=== PATIENT | female | born 1965 | race Caucasian/White ===

== ENCOUNTER 2019-07-12 13:06 | Emergency (ER) | payer OTHER ==
[~2019-07-12] VITALS: Ht 170.2 cm; Wt 77.1 kg
[~2019-07-12 13:06] MED LIST: ACET120S PR; ACET325 PO; ALBU90OI INH; ALBU90OI61 INH; AZIT250 PO; BENZ100A PO; BGALA3.3 PO; CARI350 PO; CYCL10; CYCL10 PO; DIAZ5 PO; DICL100ER PO; GUAPHELA PO; HYDACE10B PO; HYDACE5 PO; HYDGUAL120 PO; IBUP200; IBUP800; IBUP800 PO; Monodox100 MG PO; NAPR500 PO; NAPR550 PO; OXYACE7.5T PO; PROACE100; PROCODE120 PO; Prednisone20 MG PO; Prilosec Otc20 MG PO; Robaxin500 MG PO; SOMINEX; SPACE CHAMBER1 EACH MC; SULTRIDS PO; Sudogest30 MG PO; TRAM50 PO; ZOLP5 PO
[2019-07-12] MEDS ORDERED: Voltaren100 GM TOP (14:42)
== END 2019-07-12 14:50 | disposition home or self-care (01) ==
LOC: ER 13:06
DX: M77.9 Enthesopathy, unspecified (principal); F17.200 Nicotine dependence, unspecified, uncomplicated

== ENCOUNTER 2021-04-28 17:44 | Emergency (ER) | payer OTHER ==
[~2021-04-28] VITALS: Ht 165.1 cm; Wt 81.7 kg
[~2021-04-28 17:44] MED LIST changes: +Voltaren100 GM TOP
[2021-04-28 18:37] LABS: BASOPHILS ABSOLUTE AUTO 0.02 K/mm3 (0.00-0.23); BASOPHILS PERCENT AUTO 1 % (0-2); EOSINOPHILS ABSOLUTE AUTO 0.01 K/mm3 (0.00-0.68); EOSINOPHILS PERCENT AUTO 0 % (0-6); Hematocrit 39.4 % (33.0-51.0); Hemoglobin 13.3 g/dL (11.5-16.0); IMMATURE GRAN ABSOLUTE AUTO 0.01 K/mm3 (0.00-0.10); IMMATURE GRAN PERCENT AUTO 0 % (0-1); LYMPHOCYTES ABSOLUTE AUTO 1.11 K/mm3 (0.84-5.20); LYMPHOCYTES PERCENT AUTO 41 % (21-46); MONOCYTES ABSOLUTE AUTO 0.31 K/mm3 (0.16-1.47); MONOCYTES PERCENT AUTO 11 % (4-13); Mean Corpuscular HGB Conc 33.8 g/dL (31.5-36.5); Mean Corpuscular Volume 89 fL (80-100); Mean Platelet Volume 9.4 fL (9.1-12.4); NEUTROPHILS ABSOLUTE AUTO 1.26 K/mm3 (1.96-9.15); NEUTROPHILS PERCENT AUTO 46 % (41-73); Platelet Count 220 K/mm3 (150-400); RDW Coefficient Variation 11.5 % (11.7-14.2); RDW Standard Deviation 37.3 fL (35.1-46.3); Red Blood Cell Count 4.43 M/mm3 (3.80-5.20); White Blood Cell Count 2.72 K/mm3 (4.00-11.30)
[2021-04-28 18:55] LABS: Alanine Aminotransfer (ALT/SGP 40 U/L (12-78); Albumin, Blood 3.2 g/dL (3.4-5.0); Albumin/Globulin Ratio 0.8 (0.8-1.8); Alk Phos 76 U/L (50-136); Anion Gap 5 mmol/L (6-16); Aspartate Aminotrans (AST/SGOT 30 U/L (12-37); Bilirubin, Total 0.4 mg/dL (0.1-1.0); Blood Urea Nitrogen 10 mg/dL (8-24); Bun/Creatinine Ratio 11.7 (12.0-20.0); CO2, Blood 28 mmol/L (21-32); Calcium, Blood 8.7 mg/dL (8.5-10.1); Chloride, Blood 104 mmol/L (98-108); Creatinine, Blood 0.86 mg/dL (0.40-1.00); Globulin, Blood 3.9 g/dL (2.2-4.0); Glomerular Filtration Rate >60 (60-); Glucose, Blood 93 mg/dL (70-99); Potassium, Blood 3.7 mmol/L (3.5-5.5); Sodium, Blood 137 mmol/L (136-145); Total Protein, Blood 7.1 g/dL (6.4-8.2)
[2021-04-28] MEDS ORDERED: CAPSAICIN60 G1 TOP (21:02)
[2021-04-28 21:21] LABS: Source, Urine Clean Catch
[2021-04-28 21:25] LABS: Bilirubin, Urine Neg (Neg); Blood, Urine Neg (Neg); Color, Urine Yellow (P-Yellow); Glucose Qualitative, Urine Neg (Neg); Ketones, Urine Neg (Neg); Leukocyte Esterase, Urine 1+ (Neg); Nitrite, Urine Neg (Neg); Protein, Urine 1+ (Neg); Specific Gravity, Urine 1.015 (1.003-1.022); Urobilinogen, Urine 1+ (Normal)
[2021-04-28 21:31] LABS: Appearance, Urine Hazy (Clear); Red Blood Cells, Urine 0-2 /hpf (0-2); Squamous Epithelial Cells Mod /hpf (Few)
[2021-04-28 21:32] LABS: Bacteria Many /hpf; Hyaline Casts 0-2 /lpf (0-2); Mucus Mod (0-Heavy)
== END 2021-04-28 21:38 | disposition home or self-care (01) ==
LOC: ER 17:44
PROVIDERS: Physician Assistant
DX: K43.9 Ventral hernia without obstruction or gangrene (principal); U07.1 COVID-19; F17.200 Nicotine dependence, unspecified, uncomplicated; Z88.7 Allergy status to serum and vaccine; Z88.8 Allergy status to other drugs, medicaments and biological substances
CPT/HCPCS: 36415; 76705; 76857; 80053; 81001; 83690; 85025; 87086; 99285-25; A9270

== ENCOUNTER 2022-03-22 13:03 | Emergency (ER) | payer OTHER ==
[~2022-03-22] VITALS: Ht 170.2 cm; Wt 77.1 kg
[~2022-03-22 13:03] MED LIST changes: +CAPSAICIN60 G1 TOP
== END 2022-03-22 14:43 | disposition left against medical advice (07) ==
LOC: ER 13:03
DX: M25.562 Pain in left knee (principal); Z53.21 Procedure and treatment not carried out due to patient leaving prior to being seen by health care provider
CPT/HCPCS: 73562-LT; 99281-25

== ENCOUNTER 2024-05-30 20:35 | Emergency (ER) | payer OTHER ==
[~2024-05-30] VITALS: Ht 170.2 cm; Wt 85.7 kg
[2024-05-30 21:11] LABS: BASOPHILS ABSOLUTE AUTO 0.09 K/mm3 (0.00-0.23); BASOPHILS PERCENT AUTO 1 % (0-2); EOSINOPHILS ABSOLUTE AUTO 0.26 K/mm3 (0.00-0.68); EOSINOPHILS PERCENT AUTO 4 % (0-6); Hematocrit 39.2 % (33.0-51.0); Hemoglobin 12.9 g/dL (11.5-16.0); IMMATURE GRAN ABSOLUTE AUTO 0.02 K/mm3 (0.00-0.10); IMMATURE GRAN PERCENT AUTO 0 % (0-1); LYMPHOCYTES ABSOLUTE AUTO 2.31 K/mm3 (0.84-5.20); LYMPHOCYTES PERCENT AUTO 35 % (21-46); MONOCYTES ABSOLUTE AUTO 0.67 K/mm3 (0.16-1.47); MONOCYTES PERCENT AUTO 10 % (4-13); Mean Corpuscular HGB 29.9 pg (26.0-34.0); Mean Corpuscular HGB Conc 32.9 g/dL (31.5-36.5); Mean Corpuscular Volume 91 fL (80-100); Mean Platelet Volume 9.1 fL (9.1-12.4); NEUTROPHILS ABSOLUTE AUTO 3.18 K/mm3 (1.96-9.15); NEUTROPHILS PERCENT AUTO 49 % (41-73); Platelet Count 294 K/mm3 (150-400); RDW Standard Deviation 40.1 fL (35.1-46.3); Red Blood Cell Count 4.31 M/mm3 (3.80-5.20); White Blood Cell Count 6.53 K/mm3 (4.00-11.30)
[2024-05-30 21:37] LABS: Albumin, Blood 3.5 g/dL (3.4-5.0); Bilirubin, Total 0.3 mg/dL (0.1-1.0); Bun/Creatinine Ratio 22.8 (12.0-20.0); Calcium, Blood 9.2 mg/dL (8.5-10.1); Creatinine, Blood 0.92 mg/dL (0.40-1.00); Globulin, Blood 3.4 g/dL (2.2-4.0); Potassium, Blood 3.8 mmol/L (3.5-5.5); Total Protein, Blood 6.9 g/dL (6.4-8.2)
[2024-05-30 23:12] LABS: Source, Urine Clean Catch
[2024-05-30 23:22] LABS: Appearance, Urine Hazy (Clear); Bilirubin, Urine Neg (Neg); Blood, Urine 1+ (Neg); Color, Urine Yellow (P-Yellow); Glucose Qualitative, Urine Neg (Neg); Ketones, Urine Neg (Neg); Leukocyte Esterase, Urine 3+ (Neg); Nitrite, Urine Neg (Neg); Protein, Urine 1+ (Neg); Specific Gravity, Urine 1.025 (1.003-1.022); Urobilinogen, Urine NORM (Normal)
[2024-05-30 23:39] LABS: Bacteria Many /hpf; Red Blood Cells, Urine 0-2 /hpf (0-2); Squamous Epithelial Cells Mod /hpf (Few); White Blood Cells, Urine 25-50 /hpf (0-5)
[2024-05-30] MEDS ORDERED: CEPH500 PO (23:59)
[2024-05-31 00:11] VITALS: BP 118/80
== END 2024-05-31 00:12 | disposition home or self-care (01) ==
LOC: ER 20:35
PROVIDERS: Student in an Organized Health Care Education/Training Program
DX: R10.33 Periumbilical pain (principal); N30.00 Acute cystitis without hematuria; Z88.7 Allergy status to serum and vaccine; Z88.1 Allergy status to other antibiotic agents; Z88.8 Allergy status to other drugs, medicaments and biological substances; F17.200 Nicotine dependence, unspecified, uncomplicated; Z98.890 Other specified postprocedural states
CPT/HCPCS: 74177; 76857; 80053; 81001; 85025; 87086; 99284-25; Q9967

== ENCOUNTER 2024-06-18 16:14 | Emergency (ER) | payer OTHER ==
[~2024-06-18] VITALS: Ht 170.2 cm; Wt 83.9 kg
[~2024-06-18 16:14] MED LIST changes: +CEPH500 PO
[2024-06-18 16:27] VITALS: BP 123/86
[2024-06-18] MEDS ORDERED: Ketorolac Tromethamine 30mg Vial IM ONE (17:35)
[2024-06-18] MEDS ORDERED: OxyCODONE 5 mg/Acetamin 325 mg TABLET PO ONE (17:35)
[2024-06-18] MEDS ORDERED: Percocet 5-3251 EACH PO (17:36)
[2024-06-18] MEDS ORDERED: CRUTCH2 XX (17:37)
== END 2024-06-18 18:15 | disposition home or self-care (01) ==
LOC: ER 16:14
DX: S82.145A Nondisplaced bicondylar fracture of left tibia, initial encounter for closed fracture (principal); S82.402A Unspecified fracture of shaft of left fibula, initial encounter for closed fracture; F17.200 Nicotine dependence, unspecified, uncomplicated; W11.XXXA Fall on and from ladder, initial encounter; Z88.7 Allergy status to serum and vaccine; Z88.8 Allergy status to other drugs, medicaments and biological substances
CPT/HCPCS: 73562-LT; 96372; 99283-25; A9270; J1885

== ENCOUNTER 2024-10-05 14:46 | Emergency (ER) | payer OTHER ==
[~2024-10-05] VITALS: Ht 170.2 cm; Wt 79.4 kg
[~2024-10-05 14:46] MED LIST changes: +CRUTCH2 XX; +Percocet 5-3251 EACH PO
[2024-10-05 15:15] VITALS: BP 155/84
== END 2024-10-05 17:24 | disposition home or self-care (01) ==
LOC: ER 14:46
DX: M25.562 Pain in left knee (principal); Z88.7 Allergy status to serum and vaccine; Z88.8 Allergy status to other drugs, medicaments and biological substances; F17.200 Nicotine dependence, unspecified, uncomplicated
CPT/HCPCS: 73562-LT; 93971; 99283-25

== ENCOUNTER 2025-03-21 12:10 | Inpatient (IN) | payer OTHER ==
[~2025-03-21] VITALS: Ht 170.2 cm; Wt 90.0 kg
[~2025-03-21 12:10] MED LIST changes: +Propofol 10mg/ml 20 ml Vial (Procedural) IV ONE
[2025-03-21 12:54] LABS: BASOPHILS ABSOLUTE AUTO 0.08 K/mm3 (0.00-0.23); BASOPHILS PERCENT AUTO 1 % (0-2); EOSINOPHILS ABSOLUTE AUTO 0.20 K/mm3 (0.00-0.68); EOSINOPHILS PERCENT AUTO 3 % (0-6); Hematocrit 40.6 % (33.0-51.0); Hemoglobin 13.8 g/dL (11.5-16.0); IMMATURE GRAN ABSOLUTE AUTO 0.02 K/mm3 (0.00-0.10); IMMATURE GRAN PERCENT AUTO 0 % (0-1); LYMPHOCYTES ABSOLUTE AUTO 1.58 K/mm3 (0.84-5.20); LYMPHOCYTES PERCENT AUTO 22 % (21-46); MONOCYTES ABSOLUTE AUTO 0.67 K/mm3 (0.16-1.47); MONOCYTES PERCENT AUTO 9 % (4-13); Mean Corpuscular HGB Conc 34.0 g/dL (31.5-36.5); Mean Corpuscular Volume 91 fL (80-100); NEUTROPHILS ABSOLUTE AUTO 4.76 K/mm3 (1.96-9.15); NEUTROPHILS PERCENT AUTO 65 % (41-73); NRBC ABSOLUTE 0.00 K/mm3 (0.00-0.02); NRBC Auto 0.0 /100 WBC (0.0-0.2); Platelet Count 283 K/mm3 (150-400); RDW Coefficient Variation 12.4 % (11.7-14.2); RDW Standard Deviation 40.9 fL (35.1-46.3)
[2025-03-21] MEDS ORDERED: Diltiazem HCl 5 MG / ML 5ML Vial IV ONE (13:10)
[2025-03-21 13:25] LABS: Alanine Aminotransfer (ALT/SGP 43.0 U/L (12-78); Albumin, Blood 3.4 g/dL (3.4-5.0); Albumin/Globulin Ratio 0.8 (0.8-1.8); Anion Gap 10.0 mmol/L (3-11); Aspartate Aminotrans (AST/SGOT 27.0 U/L (12-37); Bilirubin, Total 0.7 mg/dL (0.1-1.0); Blood Urea Nitrogen 17.0 mg/dL (8-24); CO2, Blood 23.0 mmol/L (21-32); Calcium, Blood 8.8 mg/dL (8.5-10.1); Chloride, Blood 109.0 mmol/L (98-108); Creatinine, Blood 0.85 mg/dL (0.40-1.00); Globulin, Blood 4.0 g/dL (2.2-4.0); Glucose, Blood 114.0 mg/dL (70-99); Potassium, Blood 3.9 mmol/L (3.5-5.5); Sodium, Blood 138.0 mmol/L (136-145); Total Protein, Blood 7.4 g/dL (6.4-8.2)
[2025-03-21] MEDS ORDERED: Furosemide 10 MG / ML 2ML Vial IV ONE (15:35)
[2025-03-21] MEDS ORDERED: Polyethylene Glycol 3350 17 gm PO PRN (16:35)
[2025-03-21 18:50] VITALS: BP 133/97
[2025-03-21] MEDS ORDERED: DIAZ5 PO (18:50)
[2025-03-21] MEDS ORDERED: IBUP400 PO (18:50)
--- NOTE | 2025-03-21 19:20 | NUR ---
ADMIT NOTE PT TO ROOM AT 1840; SBA TRANSFERED TO BED. PT ALERT, ORIENTED X4; ANXIOUS BUT COOPERATIVE WITH CARE. ORIENTED TO ROOM AND CALL LIGHT. REPORT GIVEN TO ONCOMING RN.
[2025-03-21 19:55] VITALS: BP 140/82
[2025-03-21 23:00] VITALS: BP 124/98
[2025-03-22 03:42] VITALS: BP 144/104
--- NOTE | 2025-03-22 04:35 | NUR ---
SHIFT SUMMARY THIS RN ASSUMED CARE OF PATIENT AT 1900. PT A&O X4. ANXIOUS AT TIMES. ABLE TO MAKE NEEDS KNOWN. PT WITH REPORTED LEG CRAMPS DURING THIS SHIFT. IMPROVEMENT WITH REPOSITIONING AND HEAT APPLICATION. AWAITING LAB RESULTS AT THIS TIME. PT ON A DILT GTT AT BEGINNING OF SHIFT. TITRATED PER PROTOCOL/EMAR. PLACED ON STANDBY AROUND 2300. PT REMAINS OFF THE GTT AT THIS TIME WITH HR 90-100'S. INCREASED HR WITH AMBULATION TO 120-130'S BUT QUICKLY RECOVERS. PT PLACED ON 2L VIA NC WHILE SLEEPING FOR NOTED DESATTING TO THE MID 80'S. DYSPNEA WITH EXERTION. BP STABLE. AFEBRILE. DENIES CHEST PAIN/PRESSURE AND SOB AT REST. MEDICATED PER EMAR FOR LEFT KNEE PAIN AND HEADACHE. PT REFUSED TYLENOL D/T REPORTED "HEARTBURN" WHEN SHE HAS TAKEN IT IN THE PAST. SBA TO BATHROOM. BED IN LOWEST POSITION AND CALL LIGHT WITHIN REACH. [facility]
[2025-03-22 04:37] LABS: Hematocrit 40.6 % (33.0-51.0); Hemoglobin 13.9 g/dL (11.5-16.0); Mean Corpuscular HGB Conc 34.2 g/dL (31.5-36.5); Mean Corpuscular Volume 90 fL (80-100); NRBC ABSOLUTE 0.00 K/mm3 (0.00-0.02); NRBC Auto 0.0 /100 WBC (0.0-0.2); Platelet Count 247 K/mm3 (150-400); RDW Coefficient Variation 12.2 % (11.7-14.2); RDW Standard Deviation 39.8 fL (35.1-46.3)
[2025-03-22 05:29] LABS: Albumin, Blood 3.3 g/dL (3.4-5.0); Anion Gap 10 mmol/L (3-11); Blood Urea Nitrogen 17 mg/dL (8-24); CO2, Blood 25 mmol/L (21-32); Calcium, Blood 8.5 mg/dL (8.5-10.1); Chloride, Blood 106 mmol/L (98-108); Creatinine, Blood 0.75 mg/dL (0.40-1.00); Glucose, Blood 140 mg/dL (70-99); Magnesium, Blood 2.0 mg/dL (1.6-2.4); Phosphorus, Blood 4.2 mg/dL (2.5-4.9); Potassium, Blood 3.7 mmol/L (3.5-5.5); Sodium, Blood 137 mmol/L (136-145); Thyroid Stimulating Hormone 1.950 uIU/mL (0.360-4.800)
[2025-03-22 07:43] VITALS: BP 162/110
[2025-03-22] MEDS ORDERED: NS 500 ML IV SCH ×2 (08:40→11:55)
[2025-03-22] MEDS ORDERED: Albuterol 2.5 MG/3 ML VIAL INH PRN (08:55)
[2025-03-22 12:22] VITALS: BP 140/92
[2025-03-22] MEDS ORDERED: Acetaminophen/Aspirin/Caffeine 250/250/65 MG PO PRN (13:10)
[2025-03-22 16:22] VITALS: BP 149/101
--- NOTE | 2025-03-22 16:53 | NUR ---
SHIFT SUMMARY: PT ALERT AND ORIENTED X4, ABLE TO FOLLOW COMMANDS AND MAKE NEEDS KNOWN. ANXIOUS AT TIMES. STRENGTH EQUAL BILATERALLY. AFEBRILE. SPO2 >96% ON ROOM AIR. LUNG SOUNDS CLEAR, RESPIRTIONS EVEN AND UNLABORED AT REST. HR REMAINS AFIB 120'S- CONTINUING TO REFUSE DILT GTT. PT WILLING TO TAKE PO METOPROLOL THIS AM, TOLERATED WELL. PT REMAINS HYPERTENSIVE- REFUSING BLOOD PRESSURE MEDICATIONS AT THIS TIME. ABD MILDLY DISTENDED, BOWEL SOUNDS +. PULSES STRONG AND EQUAL THROUGHOUT. IND TO AND FROM BATHROOM. NS GTT @50ML/HR. PT WITH 7/10 HEADACHE THROUGHOUT THE DAY, MEDICATED PER EMAR WITH MINIMAL RELIEF. CURRENTLY IN BED, WATCHING TELEVISION. BED IN LOW, CALL LIGHT IN REACH, WILL REPORT TO ONCOMING RN.
[2025-03-22 19:45] VITALS: BP 129/95
[2025-03-22 22:50] VITALS: BP 2/75
[2025-03-23 04:28] LABS: Hematocrit 42.6 % (33.0-51.0); Hemoglobin 14.7 g/dL (11.5-16.0); Mean Corpuscular HGB Conc 34.5 g/dL (31.5-36.5); Mean Corpuscular Volume 89 fL (80-100); NRBC ABSOLUTE 0.00 K/mm3 (0.00-0.02); NRBC Auto 0.0 /100 WBC (0.0-0.2); Platelet Count 302 K/mm3 (150-400); RDW Coefficient Variation 12.1 % (11.7-14.2); RDW Standard Deviation 39.5 fL (35.1-46.3)
[2025-03-23 04:34] VITALS: BP 143/99
--- NOTE | 2025-03-23 04:41 | NUR ---
SHIFT SUMMARY PT A&O X4. ABLE TO MAKE NEEDS KNOWN. ANXIOUS AT TIMES. PT AGREED TO BEING PLACED BACK ON DILT GTT WHEN THIS RN CAME ON SHIFT. HR NOTED TO BE 140'S AT THAT TIME. DILT GTT NOW ON STANDBY WITH AFIB 80-100'S. BP STABLE. ON RA WITH SPO2 >92% WHILE AWAKE. SLEEP OXIMETRY STUDY ONGOING AT THIS TIME. PT FINISHED 500ML NS INFUSION. UP TO BATHROOM INDEPENDENTLY. MEDICATED PER EMAR FOR HEADACHE WITH REPORTED IMPROVEMENT. PT REPOSITIONING SELF IN BED INDEPENDENTLY. BED IN LOWEST POSITION AND CALL LIGHT WITHIN REACH. THIS RN WILL REPORT TO ONCOMING DAYSHIFT RN.
[2025-03-23 04:59] LABS: Albumin, Blood 3.1 g/dL (3.4-5.0); Anion Gap 4 mmol/L (3-11); Blood Urea Nitrogen 15 mg/dL (8-24); CO2, Blood 31 mmol/L (21-32); Calcium, Blood 8.5 mg/dL (8.5-10.1); Chloride, Blood 106 mmol/L (98-108); Creatinine, Blood 0.86 mg/dL (0.40-1.00); Glucose, Blood 139 mg/dL (70-99); Magnesium, Blood 2.1 mg/dL (1.6-2.4); Phosphorus, Blood 4.2 mg/dL (2.5-4.9); Potassium, Blood 4.1 mmol/L (3.5-5.5); Sodium, Blood 137 mmol/L (136-145)
[2025-03-23 08:03] VITALS: BP 139/95
[2025-03-23 10:55] VITALS: BP 115/90
[2025-03-23 15:50] VITALS: BP 114/71
--- NOTE | 2025-03-23 17:03 | NUR ---
SHIFT SUMMARY: PT REMAINS ALERT AND ORIENTED X4, ABLE TO FOLLOW COMMANDS AND MAKE NEEDS KNOWN. ANXIOUS AT TIMES. BP STABLE. HR AFIB 80'S. AFEBRILE. SPO2 >96% ON ROOM AIR. PULSES STRONG AND EQUAL THROUGHOUT. ABD SOFT, NON TENDER, BOWEL SOUNDS +. DILT ON STANDBY. MEDICATED X1 FOR HEADACHE. PT IND TO AND FROM BATHROOM. DENIES PAIN. BED IN LOW, CALL LIGHT IN REACH, WILL REPORT TO ONCOMING RN.
[2025-03-23 20:15] VITALS: BP 127/79
[2025-03-24 00:05] VITALS: BP 137/94
[2025-03-24 04:12] LABS: Hematocrit 43.8 % (33.0-51.0); Hemoglobin 14.9 g/dL (11.5-16.0); Mean Corpuscular HGB Conc 34.0 g/dL (31.5-36.5); Mean Corpuscular Volume 89 fL (80-100); NRBC ABSOLUTE 0.00 K/mm3 (0.00-0.02); NRBC Auto 0.0 /100 WBC (0.0-0.2); Platelet Count 300 K/mm3 (150-400); RDW Coefficient Variation 12.1 % (11.7-14.2); RDW Standard Deviation 39.3 fL (35.1-46.3)
[2025-03-24 04:25] VITALS: BP 134/92
[2025-03-24 04:32] LABS: Albumin, Blood 3.1 g/dL (3.4-5.0); Anion Gap 7 mmol/L (3-11); Blood Urea Nitrogen 23 mg/dL (8-24); CO2, Blood 28 mmol/L (21-32); Calcium, Blood 9.0 mg/dL (8.5-10.1); Chloride, Blood 107 mmol/L (98-108); Creatinine, Blood 0.91 mg/dL (0.40-1.00); Glucose, Blood 118 mg/dL (70-99); Phosphorus, Blood 5.1 mg/dL (2.5-4.9); Potassium, Blood 3.8 mmol/L (3.5-5.5); Sodium, Blood 138 mmol/L (136-145)
--- NOTE | 2025-03-24 06:42 | NUR ---
SHIFT SUMMARY: PT IS A&OX4, ANXIOUS AT TIMES, BUT COOPERATIVE WITH CARE. VSS ON RA. AFIB 90'S AT REST, 140'S-150'S WITH ACTIVITY. DILT GTT REMAINS ON STANDBY. C/O PAIN TO HER LEFT KNEE AND A CASTREJON, MEDICATED PER EMAR. TOLERATING A REGULAR DIET, WITH FREQUENT SNACKING. INDEPENDENT TO BR. VOIDING ADEQUATE AMOUNTS OF CLEAR YELLOW URINE. NO BM THIS SHIFT. REPOSITIONS HERSELF IN BED. BED IN LOWEST POSITION, CALL LIGHT WITHIN REACH. CALLS APPROPRIATELY AND IS ABLE TO ADVOCATE NEEDS EFFECTIVELY.
[2025-03-24 07:49] VITALS: BP 131/96
[2025-03-24 11:20] VITALS: BP 121/79
--- NOTE | 2025-03-24 12:44 | NUR ---
MORNING SUMMARY THE PT IS A&OX4, ANXIOUS, AND HAS CONCRETE THINKING ON MEDICAL CARE. THE PT IS IND IN THE ROOM WITH LEFT KNEE BRACE AND CANE. PT IS ABLE OT MAKE HER NEEDS KNOWN. THE PT HAS VALIUM 5MG TIDP ORDERED AT HOME FOR ANXIETY AND KNEE PAIN. IT WAS RESTARTED TODAY BECAUSE OF THE PT'S INCREASED EMOTIONAL STATE. THE PT HAS BEEN ARROUSABLE BUT EXTREMELY SLEEPY AFTER THE RECIEVING THE MEDICATION. THIS RN CALL DR. HILLS AND LET HIM KNOW OF THE INCREASE IN SLEEPINESS AND THIS RN ASKED FOR A CHANGE IN THE MEDICATION. DR. HILLS STATED HE WILL ORDER 2.5MG VALIUM AT BEDTIME NEEDED AND REEVALUATE THE ANXIETY MEDICAITON TOMORROW. ALSO WHILE ON THE PHONE WITH DR. HILLS THIS RN LET HIM KNOW THAT THE PT WILL NOT BE ABLE TO AMBULATE THE UNIT TO ASSESS HR WITH ACITIVTY THIS MORNING BECAUSE OF THE SLEEPINESS. THIS RN DID INFORM DR. HILLS THAT THE PT'S HR WHILE ALSEEP IS AFIB 90'S-110'S. SOON SHE WAKE UP AND TALKS HER HR JUMPS TO 120'S. DR. HILLS DISCUSSED TAPERING UP ON METOPROLOL. THE PT'S BP REMAINS STABLE. SHE HAS BEEN ON RA AND DENIES ANY SOB. SP02 >93%. SEE NOTES FOR UPDATES.
[2025-03-24 15:10] VITALS: BP 126/97
--- NOTE | 2025-03-24 15:16 | NUR ---
THIS NURSE SPOKE TO DR. HILLS ABOUT PT'S HR TOUCHING TO 170'S WITH ACTIVITY AND WALKING. THE 1700 DOSE OF METOPROLOL 25MG XL WAS GIVEN NOW FOR AFIB RVR. THE PT HAS RECIEVED A TOTAL OF 75MG PO METOPROLOL THIS SHIFT THUS FAR. PLAN TO INCREASE DOSE 03/25 0900 UP TO 100MG. SEE NOTES FOR UPDATES.
--- NOTE | 2025-03-24 18:34 | NUR ---
PT IS REPORTING THAT THE METOPROLOL IS MAKING HER "FEEL QUEEZY". WANTING TO REST. THIS WAS DISCUSSED WITH [employer] OR [employer].
[2025-03-24 20:54] VITALS: BP 122/93
[2025-03-25] VITALS (7 sets, daily range): BP systolic 100–130; BP diastolic 61–85
[2025-03-25 04:38] LABS: Hematocrit 45.2 % (33.0-51.0); Hemoglobin 15.4 g/dL (11.5-16.0); Mean Corpuscular HGB Conc 34.1 g/dL (31.5-36.5); Mean Corpuscular Volume 87 fL (80-100); NRBC ABSOLUTE 0.00 K/mm3 (0.00-0.02); NRBC Auto 0.0 /100 WBC (0.0-0.2); Platelet Count 323 K/mm3 (150-400); RDW Coefficient Variation 12.0 % (11.7-14.2); RDW Standard Deviation 38.4 fL (35.1-46.3)
[2025-03-25 04:54] LABS: Albumin, Blood 3.0 g/dL (3.4-5.0); Anion Gap 6 mmol/L (3-11); Blood Urea Nitrogen 24 mg/dL (8-24); CO2, Blood 29 mmol/L (21-32); Calcium, Blood 9.1 mg/dL (8.5-10.1); Chloride, Blood 106 mmol/L (98-108); Creatinine, Blood 0.83 mg/dL (0.40-1.00); Glucose, Blood 109 mg/dL (70-99); Magnesium, Blood 2.2 mg/dL (1.6-2.4); Phosphorus, Blood 4.6 mg/dL (2.5-4.9); Potassium, Blood 4.0 mmol/L (3.5-5.5); Sodium, Blood 137 mmol/L (136-145)
--- NOTE | 2025-03-25 06:58 | NUR ---
SHIFT SUMMARY: PT IS A&OX4, ANXIOUS AT TIMES. VSS ON RA. AFIB 90'S AT REST, 140'S-150'S WITH ACTIVITY. PT LETHARGIC THIS SHIFT, STATES IT IS FROM THE INCREASE IN METOPROLOL. DID NOT INQUIRE ABOUT PAIN MEDICATIONS THIS SHIFT. TOLERATING A REGULAR DIET, WITH ROBUST APPETITE. INDEPENDENT TO BR. VOIDING ADEQUATE AMOUNTS OF CLEAR YELLOW URINE. NO BM THIS SHIFT. WHEN ASKED THIS MORNING TO STAND ON SCALE, SHE SAID, "NOT RIGHT NOW, I DON T WANT TO GET OOB." REPOSITIONS HERSELF IN BED. BED IN LOWEST POSITION, CALL LIGHT WITHIN REACH. CALLS APPROPRIATELY AND IS ABLE TO ADVOCATE NEEDS EFFECTIVELY.
--- NOTE | 2025-03-25 17:27 | NUR ---
SHIFT SUMMARY: PT HAS BEEN A&Ox4, ANXIOUS AT TIMES R/TO PLAN OF CARE, RESPONDS TO THERAPEUTIC CONVERSATION AND HAS MEDITATED ALONE IN ROOM. RA SATS MAINTAINED >93%. PT AGREES TO CARDIOLOGY CONSULT TODAY, CONSULT PERFORMED AT BEDSIDE BY DR HAUSER, POTENTIAL TESTING AND EDUCATION PROVIDED, PT IS AGREEABLE TO LISSETTE, DR HAUSER WOULD LIKE HR STABILIZED AND MORE DIURESIS BEFORE TEST, EXPECTS LISSETTE TO HAPPEN ON 03/27, PT IS AGREEABLE TO PLAN. AFIB CONTINUES ON MONITOR, 90s-100s AT REST, UP TO 120s W/ACTIVITY. PT INDEPENDENT IN ROOM, ADEQUATE U.O., BM THIS SHIFT. PT USES CALL LIGHT APPROPRIATELY TO MAKE NEEDS KNOWN.
[2025-03-26 00:44] VITALS: BP 103/67
[2025-03-26 04:02] VITALS: BP 103/70
--- NOTE | 2025-03-26 06:42 | NUR ---
SHIFT SUMMARY: PT IS A&OX4, ANXIOUS AT TIMES. VSS ON RA. AFIB 90'S-120'S. C/O PAIN TO HER LEFT KNEE AND ANKLE, MEDICATED PER EMAR. TOLERATING A REGULAR DIET. INDEPENDENT AD CAMI IN ROOM/BR. VOIDING LARGE AMOUNTS OF CLEAR YELLOW URINE. NO BM THIS SHIFT. REPOSITIONS HERSELF IN BED. BED IN LOWEST POSITION, CALL LIGHT WITHIN REACH. CALLS APPROPRIATELY AND IS ABLE TO ADVOCATE NEEDS EFFECTIVELY.
[2025-03-26 08:02] VITALS: BP 101/75
[2025-03-26 11:54] VITALS: BP 102/72
[2025-03-26 15:44] VITALS: BP 112/49
--- NOTE | 2025-03-26 18:33 | NUR ---
End of shift note. Pt has had a decent day. OOB for a shower this afternoon. Some general anxiety about being in the hospital/waiting for testing. Some complaints of back pain, treated per NOV. Cardiology rounded and plan to continue to diuresis and will do LISSETTE tomorrow 03/27. Pt has orders for NPO at midnight. Good PO intake. Good urine output from lasix. Pt is able to make needs known. Call light is within reach.
[2025-03-26 20:39] VITALS: BP 119/88
[2025-03-27] VITALS (24 sets, daily range): BP systolic 11–125; BP diastolic 52–104
[2025-03-27 04:29] LABS: Albumin, Blood 3.3 g/dL (3.4-5.0); Anion Gap 6 mmol/L (3-11); Blood Urea Nitrogen 27 mg/dL (8-24); CO2, Blood 32 mmol/L (21-32); Calcium, Blood 9.1 mg/dL (8.5-10.1); Chloride, Blood 101 mmol/L (98-108); Creatinine, Blood 1.09 mg/dL (0.40-1.00); Glucose, Blood 147 mg/dL (70-99); Phosphorus, Blood 4.1 mg/dL (2.5-4.9); Potassium, Blood 4.4 mmol/L (3.5-5.5); Sodium, Blood 135 mmol/L (136-145)
[2025-03-27] MEDS ORDERED: NS 1,000 ML IV ONE (06:23)
--- NOTE | 2025-03-27 06:29 | NUR ---
SHIFT SUMMARY: PT IS A&OX4, ANXIOUS ABOUT HER LISSETTE THIS MORNING AND ONGOING MEDICAL INTERVENTIONS. VSS ON RA. AFIB 90'S-120'S, 140'S WITH ACTIVITY. C/O PAIN TO HER LEFT KNEE, MEDICATED PER EMAR. TOLERATING A REGULAR DIET, NPO AFTER MN FOR LISSETTE THIS MORNING. AD CAMI INDEPENDENTLY IN ROOM/BR. VOIDING LARGE AMOUNTS OF CLEAR YELLOW URINE. NO BM THIS SHIFT. REPOSITIONS HERSELF IN BED. BED IN LOWEST POSITION, CALL LIGHT WITHIN REACH. CALLS APPROPRIATELY AND IS ABLE TO ADVOCATE NEEDS EFFECTIVELY.
[2025-03-27] MEDS ORDERED: Benzocaine Oral Spray 0.5ML UD ONE (06:48)
--- NOTE | 2025-03-27 07:32 | NUR ---
Patient down to procedure room at 0640 for LISSETTE with anesthesia to evaluate MR. Consent and history on chart. initial VSS, initial BP slightly hypotensive w maps > 65. Patient in AFIB w rate 90-110. sats >97% on RA. Allergies reviewed. Dr. Peterson/anesthesiologist at bedside to see patient at 0645. 0700- anesthesia start time. 0703-Dr. Meraz arrived. 0704-Time out completed. 07-LISSETTE started. 07-LISSETTE ended. 07-Anesthesia stop time. 0735- Patient awake and able to follow commands, patient denies complaints of pain. Dr. Meraz back at this time to speak with patient. 02 removed at this time, sats 97% on RA. VSS.
--- NOTE | 2025-03-27 07:57 | NUR ---
Patient wide wake and talking. Patient denies complaints. VS at baseline. Patient back to room PCU 14 at 0800
--- NOTE | 2025-03-27 08:14 | NUR ---
ASSUMED CARE OF PATIENT AT 0700; OUT OF ROOM AT THAT TIME, BACK TO ROOM AT 0800 POST LISSETTE. BP SOFT 92/74; HR 100-110'S, SPO2 >90% ON RA, BREATHING EVEN AND UNLABORED. ALERT, ORIENTED X4; ANXIOUS BUT COOPERATIVE WITH CARE. PT UP WITH SBA IN ROOM. RPEORTS PAIN TO LEFT KNEE, 6/10. PT DENIES CHEST PAIN/PRESSURE, SOB, NAUSEA, DIZZINESS AND NUMB/TINGLING. TELE AFIB. ABD, SOFT, NONTENDER. EDEMA NOTED TO LEFT WRIST, PT STATES FROM PREVIOUS IV, TENDER TO TOUCH. CALL LIGHT WITHIN REACH.
--- NOTE | 2025-03-27 18:15 | NUR ---
SHIFT SUMMARY PT ALERT, ORIENTED X4; ANXIOUS AND NONCOMPLIANT WITH CARE; PT REFUSING MEDICATION ON/OFF DURING SHIFT. DR MIRELES AT BEDSIDE THIS AM, ATTEMPTING TO EDUCATE PATIENT ON RESULTS OF LISSETTE AND PATIENT CONSTANTLY INTERRUPTED THE EXPLAINATION, AT ONE POINT STATING "ALL THIS HEART STUFF HAS TO DO WITH MY KNEE." LATER THIS AFTERNOON PT EXPRESSED FRUSTRATION ON NOT UNDERSTANDING WHAT IS GOING ON, THIS RN PRINTED EDUCATION ON HEART FAILURE, AFIB, AND MEDIATIONS; EDUCATED PATIENT, WITH MINIMAL UNDERSTANDING NOTED. WHEN EDUCATED ON DIETARY CHANGES, PT STATES "IF YOU TRY TO TAKE SALT AWAY, WE ARE GOING TO HAVE A PROBLEM," PATIENT ORDERED BURGER AND FRIES TO BE DELIVERED FROM [facility]. PT EXPRESSING FRUSTRATION ON LEFT KNEE, HAD A TIBIA PLATEAU FRACTURE, HAS MINIMAL MOVEMENT IN KNEE NOW, ASKING FOR MRI WHILE IN PATIENT HOWEVER, PATIENT HAS [facility] PL[facility] [place] [facility] AND HAS PLAN OF CARE WITH [facility] FOR SURGERY IF NEEDED. VSS. BP TRENDED UP DURING SHIFT. HR 90-110'S, 130-150 WITH ACTIVITY OR DISTRESS. REFUSED LASIX THIS AM, NOTIFIED. OTHER VSS. NO OTHER ACUTE CHANGES NOTED. PT WALKED DOWN DONNELLY APPROX 200 THIS EVENING. CALL LIGHT WITHIN REACH.
[2025-03-28] VITALS: BP 106/66
[2025-03-28 04:00] VITALS: BP 92/60
--- NOTE | 2025-03-28 05:57 | NUR ---
SHIFT SUMMARY PT HAS TOLERATED SHIFT WELL WITH NO SIGNIFICANT EVENTS OVERNIGHT. PTS VITAL SIGNS REMAIN STABLE OVERNIGHT. PT REQUESTING MANUAL BP BE TAKEN BECAUSE SHE DOES NOT BELIEVE MONITORs BP READING. PT HAD ONE INSTANCE OF PAIN OVERNIGHT FOR WHICH MEDS WERE GIVEN PER THE NOV. PT IS CURRENTLY RESTING COMFORTABLY IN ROOM AT THIS TIME, CALL LIGHT WITHIN REACH. WILL CONTINUE TO MONITOR UNTIL REPORT PASSED TO DAY SHIFT TEAM.
[2025-03-28 08:04] VITALS: BP 98/78
[2025-03-28 09:05] LABS: Anion Gap 9.0 mmol/L (3-11); Blood Urea Nitrogen 28.0 mg/dL (8-24); CO2, Blood 29.0 mmol/L (21-32); Calcium, Blood 9.3 mg/dL (8.5-10.1); Chloride, Blood 103.0 mmol/L (98-108); Creatinine, Blood 0.9 mg/dL (0.40-1.00); Glucose, Blood 195.0 mg/dL (70-99); Potassium, Blood 3.5 mmol/L (3.5-5.5); Sodium, Blood 137.0 mmol/L (136-145)
[2025-03-28] MEDS ORDERED: ELIQUIS5 M2 PO (10:22)
[2025-03-28] MEDS ORDERED: DIGOX125 MC1 PO (10:23)
[2025-03-28] MEDS ORDERED: FURO40 PO (10:23)
[2025-03-28] MEDS ORDERED: OXYC5 PO (10:24)
[2025-03-28] MEDS ORDERED: MIRALAX17 GM PO (10:24)
--- NOTE | 2025-03-28 12:02 | NUR ---
ROUNDED WITH HOSPITALIST AT ROUGHLY 0900. PT EXPTREMELY ANXIOUS ABOUT CURRENT TREATMENT PLAN AND NEW ORDER FOR DIGOXIN THAT WAS PLACED YESTERDAY. PT STATED THAT THE MD NEVER TOLD HER ABOUT THE MEDICATION, MD ASSURED PT THAT THE DISCUSSION ABOUT DIGOXIN HAPPENED YESTERDAY, PT DENIED AGAIN. MD EDUCATED PT IN DEPTH ABOUT HEART RATE CONTROL AND HER AFIB. PT FIXATED ON HER HEART VALVE AND KNEE SUGERY THAT IS NEEDED. MD ATTEMPTED TO DISCUSS PT'S NEED TO CONTROL HR, PT NOT REEPTIVE AND CONTINOUSLY INTERUPTED MD. PT STATED MULTIPLE TIMES THAT SHE DID NOT WANT TO TAKE DIGOXIN. PT STATED THAT SHE DOES NOT WANT TO TAKE THE MEDS ECAUSE "THEY ALL HAVE BAD SIDE EFFECTS." MD ATTEMPTED MULTIPLE TIMES TO EDUCATE PT ON THE REASON FOR DIGOXIN, PT CONTINED TO DECLINE MED.
[2025-03-28] MEDS ORDERED: POTA10T PO (12:19)
--- NOTE | 2025-03-28 13:05 | NUR ---
DISCHARGE SUMMARY DISCHARGE PACKET ONE OVER WITH PT BY JOSE CAREY AT 1200. PT DISCHARGED AT 1305 AFTER HER FRIEND ARRIVED TO TAKE HER HOME. PT PERSONAL BELONGINGS IN BAGS AND WITH PT AT TIME OF DISGCHARGE, HARDSCRIPT IN DISCHARGE PACKET. PT PERSONAL MEDS RETURNED TO PT AT TIME OF DISCAHRGE. DISCHARGE PACKET WITH PT AT TIME OF DISCAHRGE.
== END 2025-03-28 13:05 | disposition home or self-care (01) | DRG 308 ==
LOC: ER 12:10 → ERHOLD 16:32 → PCU 16:32
PROVIDERS: Internal Medicine; Internal Medicine Cardiovascular Disease; Student in an Organized Health Care Education/Training Program; ADMIT Internal Medicine
PROC: B24CZZ4 Ultrasonography of Pericardium, Transesophageal (ICD-10-PCS; principal; 2025-03-27)
DX: I48.91 Unspecified atrial fibrillation (principal); I50.31 Acute diastolic (congestive) heart failure; F41.9 Anxiety disorder, unspecified; G89.29 Other chronic pain; M25.562 Pain in left knee; G47.00 Insomnia, unspecified; I34.0 Nonrheumatic mitral (valve) insufficiency; R13.10 Dysphagia, unspecified; F17.210 Nicotine dependence, cigarettes, uncomplicated; Z98.891 History of uterine scar from previous surgery; Z90.710 Acquired absence of both cervix and uterus; Z98.51 Tubal ligation status; Z90.49 Acquired absence of other specified parts of digestive tract; Z88.7 Allergy status to serum and vaccine; Z88.8 Allergy status to other drugs, medicaments and biological substances; Z79.891 Long term (current) use of opiate analgesic; Z79.899 Other long term (current) drug therapy
CPT/HCPCS: 36415; 71046; 71260; 80048; 80053; 80069; 82533; 82947; 83036; 83735; 83880; 84443; 84484; 85025; 85027; 93005; 93010; 93306; 93312; 93325; 93971; 94640; 94664; 94760; 94762; 96374-59; 96375-59; 97161; 99285-25; A9270; J1938; J2704; J7030; Q9967